=== PATIENT | male | born 1945 | race Caucasian/White ===

== ENCOUNTER 2023-10-20 14:27 | Emergency (ER) | payer MEDICARE ==
[~2023-10-20] VITALS: Ht 162.6 cm; Wt 62.5 kg
[~2023-10-20 14:27] MED LIST: BENZONATATE100 MG PO; GENVOYA TABLET1 EACH PO; GUAIFENESI100 MG/5 M PO; LEVAQUIN750 MG PO; SERTRALINE HCL50 MG PO; SUSTIVA600 MG PO; TRUVADA 200 MG1 EACH PO; VITAMIN C250 MG PO; ZOFRAN4 MG PO; ZOLPIDEM TARTRAT5 MG PO
[2023-10-20] MEDS ORDERED: ODEFSEY TABLET1 EACH PO (15:45)
[2023-10-20] MEDS ORDERED: FAMCICLOVIR500 MG PO (15:46)
[2023-10-20 16:01] LABS: BASOPHILS 0.7 % (0-2); EOSINOPHILS 0.2 % (0-6); HEMATOCRIT 36.3 % (35.0-50.0); HEMOGLOBIN 11.5 g/dL (12.0-18.0); LYMPHOCYTES 5.6 % (24-44); MCH 26.2 (27-36); MCHC 31.8 g/dl (30-36); MCV 82.5 fl (81-99); MONOCYTES 9.9 % (0-12); NEUTROPHILS 83.6 % (39-80); PLATELET COUNT 284 K/uL (140-440); RDW 15.6 (10.5-15.0)
[2023-10-20 16:18] LABS: ALBUMIN 3.8 g/dL (3.4-5.0); ALBUMIN/GLOBULIN RATIO 1.12 (1.1-2.4); ANION GAP 16.7 (7-21); BILIRUBIN, TOTAL 0.8 ng/dL (0.2-1.0); BUN/CREATININE RATIO 17.07 (6.0-28.6); CALCIUM 9.1 mg/dL (8.5-10.1); CREATININE, SERUM 1.23 mg/dL (0.70-1.30); POTASSIUM 3.7 mmol/L (3.5-5.1); PROTEIN, TOTAL 7.2 g/dL (6.4-8.2)
[2023-10-20 16:39] LABS: BILIRUBIN, URINE NEGATIVE (negative); BLOOD/HGB, URINE LARGE (Negative); KETONE, URINE SMALL (Negative); LEUK ESTERASE, URINE NEGATIVE (negative); NITRITE, URINE NEGATIVE (negative)
[2023-10-20 16:45] LABS: CRYSTALS, URINE NONE SEEN (0-1+); EPITHELIAL CELLS, URINE SQUAMOUS 1+ /lpf (0-1+); RED BLOOD CELLS, URINE >50 /hpf (0-5)
[2023-10-20 16:46] LABS: BACTERIA, URINE NONE SEEN /hpf (negative); CASTS, URINE NONE SEEN \\lpf; COLLECTION TYPE, URINE CLEAN CATCH; REFLEX CULTURE, URINE No (No)
[2023-10-20] MEDS ORDERED: ONDANSETRON ODT4 MG PO (18:16)
[2023-10-20] MEDS ORDERED: MACROBID 100 M100 MG PO (18:16)
[2023-10-20] MEDS ORDERED: HYDROCODON-ACE1 EA10 PO (18:16)
[2023-10-20] MEDS ORDERED: FLOMAX0.4 MG PO (18:16)
[2023-10-20 18:25] VITALS: BP 151/63
== END 2023-10-20 18:25 | disposition home or self-care (01) ==
LOC: ED 14:27
PROVIDERS: Emergency Medicine
DX: N13.2 Hydronephrosis with renal and ureteral calculous obstruction (principal); I10 Essential (primary) hypertension; Z21 Asymptomatic human immunodeficiency virus [HIV] infection status; M16.0 Bilateral primary osteoarthritis of hip; M17.0 Bilateral primary osteoarthritis of knee; Z87.891 Personal history of nicotine dependence; Z88.5 Allergy status to narcotic agent; Z88.0 Allergy status to penicillin; Z88.2 Allergy status to sulfonamides; Z88.6 Allergy status to analgesic agent; Z79.899 Other long term (current) drug therapy; Z96.642 Presence of left artificial hip joint
CPT/HCPCS: 36415; 74177; 80053; 81001; 83690; 85025; 99284-25; Q9967

== ENCOUNTER 2024-04-06 19:18 | Emergency (ER) | payer MEDICARE ==
[~2024-04-06] VITALS: Ht 162.6 cm; Wt 63.4 kg
[~2024-04-06 19:18] MED LIST changes: +FAMCICLOVIR500 MG PO; +FLOMAX0.4 MG PO; +HYDROCODON-ACE1 EA10 PO; +MACROBID 100 M100 MG PO; +ODEFSEY TABLET1 EACH PO; +ONDANSETRON ODT4 MG PO
[2024-04-06 20:19] LABS: BILIRUBIN, URINE POSITIVE (negative); BLOOD/HGB, URINE LARGE (Negative); KETONE, URINE SMALL (Negative); LEUK ESTERASE, URINE MODERATE (negative); NITRITE, URINE POSITIVE (negative)
[2024-04-06 20:24] LABS: RED BLOOD CELLS, URINE >50 /hpf (0-5)
[2024-04-06 20:25] LABS: BACTERIA, URINE RARE /hpf (negative); CASTS, URINE NONE SEEN \\lpf; COLLECTION TYPE, URINE CLEAN CATCH; CRYSTALS, URINE NONE SEEN (0-1+); EPITHELIAL CELLS, URINE SQUAMOUS 1+ /lpf (0-1+)
[2024-04-06 20:26] LABS: REFLEX CULTURE, URINE No (No)
[2024-04-06 20:37] LABS: HEMATOCRIT 34.8 % (35.0-50.0); HEMOGLOBIN 11.2 g/dL (12.0-18.0); MCH 25.3 (27-36); PLATELET COUNT 245 K/uL (140-440); RBC 4.41 M/ul (4.3-5.7); RDW 18.8 (10.5-15.0)
[2024-04-06 20:45] LABS: ALBUMIN 3.4 g/dL (3.4-5.0); ALBUMIN/GLOBULIN RATIO 1.13 (1.1-2.4); ANION GAP 15.2 (7-21); BILIRUBIN, TOTAL 0.5 ng/dL (0.2-1.0); BUN/CREATININE RATIO 18.51 (6.0-28.6); CALCIUM 8.8 mg/dL (8.5-10.1); CREATININE, SERUM 1.08 mg/dL (0.70-1.30); POTASSIUM 4.2 mmol/L (3.5-5.1); PROTEIN, TOTAL 6.4 g/dL (6.4-8.2)
[2024-04-06 20:50] LABS: BANDS, MANUAL DIFF 5; BASOPHILS, MANUAL DIFF 2; LYMPHOCYTES, MANUAL DIFF 19; MONOCYTES, MANUAL DIFF 10; NEUTROPHILS, MANUAL DIFF 64
[2024-04-06 21:59] VITALS: BP 124/58
== END 2024-04-06 22:07 | disposition home or self-care (01) ==
LOC: ED 19:18
PROVIDERS: Emergency Medicine
DX: N20.1 Calculus of ureter (principal); Z21 Asymptomatic human immunodeficiency virus [HIV] infection status; Z85.46 Personal history of malignant neoplasm of prostate; Z87.891 Personal history of nicotine dependence; Z88.5 Allergy status to narcotic agent; Z88.0 Allergy status to penicillin; Z88.2 Allergy status to sulfonamides; Z88.6 Allergy status to analgesic agent
CPT/HCPCS: 36415; 74176; 80053; 81001; 83690; 85025; 99284-25

== ENCOUNTER 2024-08-21 05:42 | Day surgery (SDC) | payer MEDICARE ==
[2024-08-16 09:18] VITALS: BP 126/70
[~2024-08-21] VITALS: Ht 162.6 cm; Wt 61.0 kg
[~2024-08-21 05:42] MED LIST changes: +LACTATED RINGER'S 1,000 ML IV SCH; +NITROFURANTOIN100 MG PO; +TAMSULOSIN HCL0.4 MG PO; +ZYRTEC10 M3 PO
[2024-08-21 06:06] VITALS: BP 129/62
[2024-08-21] MEDS ORDERED: LIDOCAINE HCL 1% 5 ML SDV INJ ONE (07:00)
[2024-08-21] MEDS ORDERED: IBLOOD GLUCOSE TEST STRIP 1 EA TEST VI PRN (07:00)
[2024-08-21] MEDS ORDERED: CEFAZOLIN SODIUM 2 GM/20 ML SYR IV SCH (07:00)
[2024-08-21] MEDS ORDERED: SUCCINYLCHOLINE IN 0.9% NACL 200 MG/10 ML SYRINGE ONE (07:20)
[2024-08-21] MEDS ORDERED: KETOROLAC TROMETHAMINE 30 MG/ML VIAL ONE (07:20)
[2024-08-21] MEDS ORDERED: LIDOCAINE HCL 2% 5 ML SDV ONE (07:20)
[2024-08-21] MEDS ORDERED: fentaNYL citrate 100 MCG/2 ML VIAL ONE (07:20)
[2024-08-21] MEDS ORDERED: DEXAMETHASONE SOD PHOS 4 MG/ML VIAL ONE (07:20)
[2024-08-21] MEDS ORDERED: ROCURONIUM BROMIDE 50 MG/5 ML SYR ONE ×2 (07:20)
[2024-08-21] MEDS ORDERED: propofoL 200 MG/20 ML VIAL ONE (07:20)
[2024-08-21] MEDS ORDERED: ondansetron HCL 4 MG/2 ML VIAL ONE (07:20)
[2024-08-21] MEDS ORDERED: HYDROmorphone HCL 1 MG/ML SYR IV PRN ×2 (07:30→17:15)
[2024-08-21] MEDS ORDERED: ondansetron HCL 4 MG/2 ML VIAL IV PRN ×2 (07:30→17:15)
[2024-08-21] MEDS ORDERED: HYDROCODONE/ACETA 5/325 TAB PO PRN (07:30)
[2024-08-21] MEDS ORDERED: PHENAZOPYRIDINE HCL 100 MG TAB PO PRN (07:45)
[2024-08-21] MEDS ORDERED: SUGAMMADEX SODIUM 200 MG/2 ML ML ONE (08:15)
--- NOTE | 2024-08-21 08:34 | NUR ---
08/21/24 0834 Daphne Alberto PATIENT OPENS HIS EYES. HE FOLLOWS INSTRUCTIONS TO OPEN HIS MOUTH. ORAL AIRWAY IS REMOVED.
[2024-08-21 08:50] VITALS: BP 141/73
[2024-08-21] MEDS ORDERED: SEVOFLURANE 250 ML BTL INH ONE (08:51)
--- NOTE | 2024-08-21 09:16 | NUR ---
0882-PT BACK TO ROOM FROM PACU ON . RECEIVED REPORT FROM MERCEDES VAUGHN. PT IS AWAKE. RESP EVEN AND UNLABORED. PT DENIES PAIN, STATES ONLY PRESSURE IN HIS BLADDER. SMITH CATH IN PLACE AND RED DRAINAGE NOTED. NO CLOTS NOTED IN SMITH CATH. PROVIDED PT WITH WATER AND CRACKERS. FAMILY AT BED SIDE. NO OTHER NEEDS AT THIS TIME. CALL LIGHT WITHIN REACH.
[2024-08-21 09:49] VITALS: BP 127/63
--- NOTE | 2024-08-21 10:22 | NUR ---
0950-PT IS LAYING IN BED AWAKE. RESP EVEN AND UNLABORED. SUSY PAIN, STATES "FEELS LIKE SOMETHING WAS DONE WHILE TOUCHING HIS LOWER ABDOMEN. SMTIH CATH DRAINING RED URINE, NO BLOOD CLOTS NOTED. PT IS READY TO GO HOME. PT WILL GET DRESSED. PT'S BROTHER IS IN ROOM WITH PT. CALL LIGHT WITHIN REACH.
--- NOTE | 2024-08-21 10:25 | NUR ---
1005-PROVIDED PT WITH DISCHARGE INSTRUCTIONS. WENT OVER POSTOP MEDICATIONS. ALL QUESTIONS ANSWERED. 1007-PT AMBULATES TO WHEELCHAIR AND RIDE PROVIDED TO FRONT OF HOSPITAL WHERE HIS BROTHER WAS WAITING WITH THE CAR.
[2024-08-21] MEDS ORDERED: fentaNYL citrate 50 MCG/ML SDV IV PRN (17:15)
[2024-08-21] MEDS ORDERED: MEPERIDINE HCL 25 MG/1 ML VIAL IV PRN (17:15)
[2024-08-21] MEDS ORDERED: NALOXONE HCL 0.4 MG SYR IV PRN (17:15)
== END 2024-08-21 10:07 | disposition home or self-care (01) ==
LOC: DS 05:42
PROVIDERS: ATTEND Urology
PROC: 0T7D8ZZ Dilation of Urethra, Via Natural or Artificial Opening Endoscopic (ICD-10-PCS; principal; 2024-08-21 07:30)
DX: N35.913 Unspecified membranous urethral stricture, male (principal); N32.89 Other specified disorders of bladder; R31.9 Hematuria, unspecified; Z85.46 Personal history of malignant neoplasm of prostate; Z21 Asymptomatic human immunodeficiency virus [HIV] infection status; Z87.891 Personal history of nicotine dependence; Z88.5 Allergy status to narcotic agent; Z88.2 Allergy status to sulfonamides; Z88.0 Allergy status to penicillin; Z79.899 Other long term (current) drug therapy
CPT/HCPCS: 00910; C1769; J0330; J0690; J1100; J1885; J2003; J2405; J2704; J3010; J3490; J7121